=== PATIENT | female | born 1985 | race Caucasian/White ===

== ENCOUNTER 2016-09-09 12:59 | Inpatient (IN) | payer MEDICAID, OTHER ==
[2016-09-09] MEDS ORDERED: NACL 0.9% 1000 ML 1,000 ML IV ONE ×3 (13:21→15:04)
[2016-09-09 13:48] LABS: Hematocrit 28.4 % (30.3-42.9); Hemoglobin 9.1 gm/dl (10.1-14.3); Mean Corpuscular HGB Conc 32 % (30-34); Mean Corpuscular Hemoglobin 28 pg (28-32); Mean Corpuscular Volume 87 fl (79-97); Platelet Count 223 K/mm3 (140-440); Red Blood Count 3.27 M/mm3 (3.65-5.03); Red Cell Distribution Width 14.4 % (13.2-15.2); White Blood Count 9.2 K/mm3 (4.5-11.0)
--- NOTE | 2016-09-09 13:58 | Emergency Department Report ---
ED Syncope HPI - General Chief Complaint: Syncope Stated Complaint: SYNCOPE/MISCARRIAGE Time Seen by Provider: 09/09/16 13:14 Source: patient, other (friends) Exam Limitations: no limitations - History of Present Illness Initial Comments: 30-year-old female with a past medical history presents to hospital complaints of vaginal bleeding and syncopal episode prior to arrival, one in route to the hospital, and in the ER triage. Patient developed spotting yesterday was term heavy since this morning. Positive lightheadedness and dizziness reported. Patient complains of mild suprapubic cramping abdominal pain. No reports of headache, chest pain, or shortness of breath. Patient is unsure if she is because in May 2016 she took an pill. She states she had an ultrasound to confirm prior to the however, she did not follow-up after taking the medication. She has not had a menstrual cycle since until bleeding started today. 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 + syncope GI: Denies nausea, vomiting, diarrhea : Denies dysuria Musculoskeletal: Denies back pain Skin: Denies rash, lesions, erythema Neurologic: Denies headache, numbness, weakness Psychiatric: Denies suicidal ideation, hallucinations ED Past Medical Hx - Social History Smoking Status: Unknown if ever smoked ED Physical Exam - General Limitations: No Limitations - Other Other exam information: General: No limitations, patient is alert in no acute distress Head exam: Atraumatic, normocephalic Eyes exam: Normal appearance, ENT: Moist mucous membrane, normal oropharynx Neck exam: Normal inspection, full range of motion, no meningismus nontender Respiratory exam: Clear to auscultation bilateral, no wheezes, rales, crackles Cardiovascular: Normal rate and rhythm, normal heart sounds Abdomen: Soft, nondistended, mild suprapubic tenderness, with normal bowel sounds, no rebound, or guarding Extremity: Full range of motion normal inspection no deformity Back: Normal Inspection, full range of motion, no tenderness Neurologic: Alert, oriented x3, cranial nerves intact, no motor or sensory deficit Psychiatric: normal affect, normal mood Skin: Warm, dry, intact ED Course Vital Signs 09/09/16 09/09/16 09/09/16 13:04 14:03 15:10 Temperature 97.4 F L 98.6 F 98.6 F Pulse Rate 81 106 H 78 Respiratory 14 16 16 Rate Blood Pressure 147/111 Blood Pressure 85/52 66/30 [Left] O2 Sat by Pulse 100 99 99 Oximetry - Reevaluation(s) Reevaluation #1: 09/09/16 14:08 pt had a 3rd syncope episode when she was taken to the bathroom to have a bowel movement. SBP 77 upon return. - Consultations Consultation #1: 09/09/16 14:00 Case d/s Lynn Aleks with [facility] to inform him of possible critical patient might need surgical intervention secondary to vaginal bleeding, hypotension, and positive for ketones. Ultrasound pending and will be performed at bedside. She requests upon callback after receiving US results that I speak to Dr. Cervantes Consultation #2: 09/09/16 16:14 Dr Cervantes came to Ed to evaluate pt and plans to admit, obs, and tranfuse ED Medical Decision Making - Lab Data Result diagrams: 09/09/16 13:29 09/09/16 13:29 Lab Results 09/09/16 09/09/16 09/09/16 Range/Units 13:29 13:29 13:29 WBC 9.2 (4.5-11.0) K/mm3 RBC 3.27 L (3.65-5.03) M/mm3 Hgb 9.1 L (10.1-14.3) gm/dl Hct 28.4 L (30.3-42.9) % MCV 87 (79-97) fl MCH 28 (28-32) pg MCHC 32 (30-34) % RDW 14.4 (13.2-15.2) % Plt Count 223 (140-440) K/mm3 Sodium 138 (137-145) mmol/L Potassium 3.4 L (3.6-5.0) mmol/L Chloride 103.4 (98-107) mmol/L Carbon Dioxide 21 L (22-30) mmol/L Anion Gap 17 mmol/L BUN 12 (7-17) mg/dL Creatinine 0.8 (0.7-1.2) mg/dL Estimated GFR > 60 ml/min BUN/Creatinine Ratio 15.00 % Glucose 185 H (65-100) mg/dL Calcium 8.1 L (8.4-10.2) mg/dL Magnesium (1.7-2.3) mg/dL HCG, Quant 6934 H (0-4) mIU/mL Blood Type Antibody Screen 09/09/16 09/09/16 Range/Units 13:29 13:29 WBC (4.5-11.0) K/mm3 RBC (3.65-5.03) M/mm3 Hgb (10.1-14.3) gm/dl Hct (30.3-42.9) % MCV (79-97) fl MCH (28-32) pg MCHC (30-34) % RDW (13.2-15.2) % Plt Count (140-440) K/mm3 Sodium (137-145) mmol/L Potassium (3.6-5.0) mmol/L Chloride (98-107) mmol/L Carbon Dioxide (22-30) mmol/L Anion Gap mmol/L BUN (7-17) mg/dL Creatinine (0.7-1.2) mg/dL Estimated GFR ml/min BUN/Creatinine Ratio % Glucose (65-100) mg/dL Calcium (8.4-10.2) mg/dL Magnesium 1.7 (1.7-2.3) mg/dL HCG, Quant (0-4) mIU/mL Blood Type O POSITIVE Antibody Screen Negative - EKG Data -: EKG Interpreted by Me (nsr [id number]) - EKG Data When compared to previous EKG there are: previous EKG unavailable - Radiology Data Radiology results: report reviewed transvag/pelvic us: Endometrial findings suggestive of retained products of conceptus - Medical Decision Making It is likely represented a syncopal episode secondary to acute vaginal bleeding. Patient's initial hemoglobin is normal however, patient will likely blood transfusion given its continued bleeding and continued hypotensive despite normal saline. - Differential Diagnosis ectopic, miscarriage, dysfunctional uterine bleeding, anemia Critical Care Time: No Critical care attestation.: If time is entered above; I have spent that time in minutes in the direct care of this critically ill patient, excluding procedure time. ED Disposition Clinical Impression: Incomplete miscarriage, Hypotension, Vaginal bleeding Disposition: OP ADMITTED IP TO THIS HOSP Is pt being admited?: Yes Condition: Stable Time of Disposition: 16:19
[2016-09-09 14:00] LABS: Anion Gap 17 mmol/L; Blood Urea Nitrogen 12 mg/dL (7-17); Calcium 8.1 mg/dL (8.4-10.2); Carbon Dioxide 21 mmol/L (22-30); Chloride 103.4 mmol/L (98-107); Glucose 185 mg/dL (65-100); Potassium 3.4 mmol/L (3.6-5.0); Sodium 138 mmol/L (137-145)
--- NOTE | 2016-09-09 15:16 | Ultrasound Report ---
Pelvic and transvaginal sonography: History: Vaginal bleeding. Findings: Uterus measures 12.8 x 6.5 x 7 cm. Endometrial thickness 25.5 mm. Endometrium appears heterogeneous and thick with anechoic areas within the endometrium. No intrauterine gestational sac. Right ovary 2.70 and 0.8 x 1.6 cm. No mass. Left ovary 3.1 x 1.8 x 1.6 cm. No mass. No fluid in the cul-de-sac. Impression: Endometrial findings suggestive of retained products of conceptus.
[2016-09-09] MEDS ORDERED: TYLENOL PO PRN (16:16)
[2016-09-09] MEDS ORDERED: NORCO 5/325 PO PRN (16:16)
[2016-09-09] MEDS ORDERED: DULCOLAX PR PRN (16:16)
[2016-09-09] MEDS ORDERED: MOTRIN PO PRN (16:16)
[2016-09-09] MEDS ORDERED: ZOFRAN IV PRN (16:16)
[2016-09-09] MEDS ORDERED: MORPHINE IV PRN (16:16)
[2016-09-09] MEDS ORDERED: MILK OF MAGNESIA PO PRN (16:16)
[2016-09-09] MEDS ORDERED: METHERGINE IM ONE (16:19)
--- NOTE | 2016-09-09 16:20 | Admit Criteria Form ---
Admission Criteria Documentation: OBSTETRIC AND GYNECOLOGIC DISEASE GRG Clinical Indications for Admission to Inpatient Care (Place 'X' for any and all applicable criteria): Hospital admission is needed for appropriate care of the patient because of ANY ONE of the following (1)(2)(3): [X ]I. Hemodynamic instability, as indicated by ALL of the following (1)(2)(3) (4)(5): [X ]a) Vital signs or other findings not as expected for chronic patient condition or baseline [ X]b) Instability indicated by ANY ONE of the following: [ X]i) Hypotension [ ]ii) Symptomatic tachycardia unresponsive to treatment (eg, analgesia, fluids, sedation as indicated) [ ]iii) Inadequate perfusion indicated by ANY ONE of the following: [ ]A. Lactic acidosis (greater than 2 mmol/ L) [ ]B. New abnormal capillary refill ( greater than 3 seconds) [ ]C. Reduced urine output [ ]D. New altered mental status [ ]iv) Orthostatic vital sign changes unresponsive to treatment (eg, fluids) [ ]v) Multiple IV fluid boluses required to maintain adequate blood pressure or perfusion [ ]vi) IV inotropic or vasopressor medication required to maintain adequate blood pressure or perfusion [ ]II. Obstetric infection requiring hospitalization indicated by ANY ONE of the following(13)(14): [ ]a) Chorioamnionitis [ ]b) Endometritis (except mild endometritis) [ ]c) Pelvic abscess [ ]d) Peritonitis [ ]e) Septic pelvic thrombophlebitis [ ]III. Amniotic fluid or pulmonary embolism(4)(5)(6) [ ]IV. Suspected peritonitis or ectopic requiring monitoring beyond scope of 24 hours or observation care(7)(8) [ ]V. compromise requiring hospitalization indicated by ALL of the following(9)(10): [ ]a) compromise indicated by ANY ONE of the following(11): [ ]i) Abnormal heart rate monitoring [ ]ii) Abnormal contraction stress test [ ]iii) Abnormal biophysical profile [ ]iv) Abnormal Doppler flow in vessels (ie, Doppler velocimetry) (12) [ ]b) Persistence of compromise indicators during evaluation and observation monitoring [ ]. Ovarian hyperstimulation syndrome requiring hospitalization[A] indicated by ALL of the following(15): [ ]a) Recent ovarian stimulation with gonadotropins, or evidence on ultrasound of spontaneous emergence of large number of ovarian follicles [ ]b) Evidence of severe ovarian hyperstimulation syndrome indicated by ANY ONE of the following: [ ]i) Abdominal pain unresponsive to oral therapy [ ]ii) Acute respiratory distress syndrome [ ]iii) Electrolyte imbalance ( eg, hyponatremia, hyperkalemia) [ ]iv) Elevated liver enzymes [ ]v) Evidence of thromboembolism [ ]vi) Hemoconcentration (hematocrit greater than 45 % (0.45)) [ ]vii) Inability to maintain oral intake adequate to prevent hemoconcentration [ ]viii) Marked hypotension from baseline (eg, SBP 20 mmHg below patients usual pressure) [ ]ix) Oliguria or anuria [ ]x) Ovarian torsion [ ]xi) Pleural or pericardial effusion on x-ray or echocardiogram [ ]xii) Rapid increase in serum creatinine to greater than 1.2 mg/dL (106 micromoles/L) or creatinine clearance less than 50 mL/min/1.73m2 (0.84 mL/ sec/1.73m2) [ ]xiii) Ruptured ovarian cyst with hemorrhage [ ]xiv) Severe abdominal pain or peritoneal signs [ ]xv) Tense ascites that cannot be managed with paracentesis in outpatient setting [ ]VII.Pelvic infection requiring hospitalization indicated by ANY ONE of the following (16): [ ]a) Outpatient treatment has failed or is not appropriate (eg, inpatient monitoring required) [ ]b) Pelvic abscess [ ]c) Surgical emergency cannot be excluded (eg, rigid abdomen) [ ]d) Vomiting precluding outpatient and observation care management VIII. loss complications requiring inpatient medical treatment indicated by ANY ONE of the following (4)(7)(9): [ ]a) Fever [ ]b) Peritonitis [ ]c) Sepsis [ ]d) Severe abdominal pain [ ]IX. or patient requiring monitoring for severe heart failure, pulmonary disease, or other comorbid condition (eg, peripartum cardiomyopathy) (4)(17) [ ]X. patient with rupture of membranes requiring hospitalization indicated by ANY ONE of the following: [ ]a) Chorioamnionitis, cloudy amniotic fluid, or other evidence of infection [ ]b) compromise or other need for monitoring (11) [ ]c) Gestation longer than 23 weeks and ANY ONE of the following: [ ]i) Abnormal (noncephalic) presentation [ ]ii) Inadequate home environment (eg, home too far from hospital, unable to rapidly return to hospital) [ ]d) Temperature greater than 100.4 degrees F (38 degrees C)( oral) [ ]e) Threatened labor requiring monitoring beyond scope (eg, over 24 hours) of observation Care [ ] XI. complications, including severe lacerations, infections, or retained placenta (19) [ ] XII.Uterine bleeding with high-risk features indicated by ANY ONE of the following (4): [ ]a) Active major hemorrhage (eg, hemorrhage) [ ]b) Coagulopathy with active bleeding [ ]c) Gestational trophoblastic disease (eg, molar ) (20 ) [ ]d) (longer than 23 weeks) and ANY ONE of the following: [ ]i) Pain [ ]ii) Placental abruption, known or suspected [ ]iii) Placenta accrete, known or suspected(21) [ ]iv) Placenta previa, known or suspected [ ]v) Vasa previa [ ]e) Severe anemia [ ]XIII. Obstetric or Gynecologic Disease, condition or symptom for which ANY ONE of the following: [ ]a) Emergency and observation care have failed or are not considered appropriate ( Also use General Criteria: Observation Care Criteria as appropriate) [ ]b) Presence of a General Admission Criteria or Pediatric General Admission Criteria The original [facility] content created by [facility] has been revised. The portions of the content which have been revised are identified through the use of italic text or in bold, and [facility] has neither reviewed nor approved the modified material.All other unmodified content is copyright [facility]. Please see references footnoted in the original [facility] edition 2016 Admission Criteria Met: Yes
--- NOTE | 2016-09-09 16:25 | History and Physical Report ---
History of Present Illness Date of examination: 09/09/16 Date of admission: 09/09/16 Chief complaint: heavy vaginal bleeding/ fainting. History of present illness: Pt is a presents c/o having vaginal bleeding with passage of large clots that started on today. She is from [place] and was in town for hair show and had been spotting for the last week but only with wiping. Pt had a normal IUP in May and states she had an elective medical by taking oral meds but did not f/u for complete resolution. She has not had a period since taking the medication but states she did a test last week when she had some spotting that was positive. Between the medical and now she did not have a period. Pt states that while at hotel this am she was using several towels for the bleeding and that she was passing large clots. She did not have pain until being examined in the ER by myself. She states that she fainted in the hotel and remembers hitting her head but she is not sure where. When she woke up she was urged by friends to come to ER but did not come. She states she started feeling more dizziness and decided to come to ER.While in the ER she has remained hypotensive with near syncopy with ambulation to the bathroom. She denies any chest pain or palpitations at this time. EKG was normal. Pt heavy bleeding was proceeded by a gush of blood. Past History Past Medical History: no pertinent history Past Surgical History: other (leg sx as a child) [employer]DER History: denies: abnormal PAP smear, chlamydia, gonorrhea, hepatitis B, hepatitis C, HIV, syphilis, trichomonas Family/Genetic History: diabetes, hypertension Social history: no significant social history Medications and Allergies Allergies Allergy/AdvReac Type Severity Reaction Status Date / Time No Known Allergies Allergy Unverified 09/09/16 13:31 Active Meds: Active Medications Acetaminophen (Tylenol) 650 mg PO Q4H PRN PRN Reason: Pain MILD(1-3)/Fever >100.5/BRAVO Acetaminophen/Hydrocodone Bitart ([place] 5/325) 2 each PO Q6H PRN PRN Reason: Pain, Moderate (4-6) Bisacodyl (Dulcolax) 10 mg AK QDAY PRN PRN Reason: Constipation unrelieved by MOM Ibuprofen (Motrin) 600 mg PO Q6H PRN PRN Reason: Pain, Mild (1-3) Magnesium Hydroxide (Milk Of Magnesia) 30 ml PO Q4H PRN PRN Reason: Constipation Methylergonovine Maleate (Methergine) 0.2 mg PO Q8HR JIMBO Methylergonovine Maleate (Methergine) 0.2 mg IM ONCE ONE Stop: 09/09/16 16:20 Morphine Sulfate (Morphine) 2 mg IV Q4H PRN PRN Reason: Pain, Moderate (4-6) Ondansetron HCl (Zofran) 4 mg IV Q8H PRN PRN Reason: N/V unrelieved by Reglan Review of Systems All systems: negative - Vital Signs Vital signs: Vital Signs Temp Pulse Resp BP Pulse Ox 97.4 F L 81 14 147/111 100 09/09/16 13:04 09/09/16 13:04 09/09/16 13:04 09/09/16 13:04 09/09/16 13:04 Temp Pulse Resp BP Pulse Ox 98.6 F 78 16 66/30 99 09/09/16 15:10 09/09/16 15:10 09/09/16 15:10 09/09/16 15:10 09/09/16 15:10 - Physical Exam Breasts: Positive: deferred Cardiovascular: Normal S1, Normal S2 Lungs: Positive: Normal air movement Abdomen: Positive: normal appearance, soft. Negative: distention, tenderness, guarding Genitourinary (Female): Positive: normal external genitalia, normal perenium Vulva: both: normal Vagina: Positive: normal moisture, other (large clots present and evacuated from the uterus) Cervix: Positive: other (approximately 1cm dilated. clots and pocs were removed from the Os with there being a significant decrease in the amount of bleeding. No clotting seen after the pocs were removed.) Extremities: Positive: normal. Negative: tenderness, edema Deep Tendon Reflex Grade: Normal +2 Results Result Diagrams: 09/09/16 13:29 09/09/16 13:29 Abnormal lab results 09/09/16 09/09/16 09/09/16 Range/Units 13:29 13:29 13:29 RBC 3.27 L (3.65-5.03) M/mm3 Hgb 9.1 L (10.1-14.3) gm/dl Hct 28.4 L (30.3-42.9) % Potassium 3.4 L (3.6-5.0) mmol/L Carbon Dioxide 21 L (22-30) mmol/L Glucose 185 H (65-100) mg/dL Calcium 8.1 L (8.4-10.2) mg/dL HCG, Quant 6934 H (0-4) mIU/mL All other labs normal. Assessment and Plan - Patient Problems (1) Spontaneous Current Visit: Yes Status: Acute Plan to address problem: -incomplete but bleeding decreasing with removal of pocs from the os as well as clots -will closely monitor and give blood at this time -methergine IV x 1 now and po q 8hrs -will proceed with D&C if pt does not respond to above conservative measures. (2) Syncope Current Visit: Yes Status: Acute Qualifiers: Syncope type: S Encounter type: E Plan to address problem: -due to amemia -give blood at this time -EKG negative -closely monitor in the unit (3) Hypotension Current Visit: Yes Status: Acute Qualifiers: Hypotension type: H Trimester: T Plan to address problem: -due to depleted volume -will give blood at this time (4) Anemia Current Visit: Yes Status: Acute Qualifiers: Anemia type: A Vitamin B12 deficiency anemia type: V Folate deficiency anemia type: F Bone marrow failure anemia type: B Hemolytic anemia type: H Other causes of anemia: acute posthemorrhagic Qualified Code(s): D62 - Acute posthemorrhagic anemia Plan to address problem: -transfuse at this time -monitor closely -if no response to conservative measures for the , will proceed with D&C
[2016-09-09] MEDS ORDERED: NACL 0.9% 500 ML 500 ML IV NR (16:39)
[2016-09-09 17:15] LABS: Hemoglobin 6.6 gm/dl (10.1-14.3); Mean Corpuscular HGB Conc 33 % (30-34); Mean Corpuscular Hemoglobin 29 pg (28-32); Mean Corpuscular Volume 88 fl (79-97); Platelet Count 156 K/mm3 (140-440); Red Blood Count 2.28 M/mm3 (3.65-5.03); Red Cell Distribution Width 14.7 % (13.2-15.2); White Blood Count 9.2 K/mm3 (4.5-11.0)
[2016-09-09 17:34] LABS: Alanine Aminotransferase 7 units/L (7-56); Albumin 2.4 g/dL (3.9-5); Albumin/Globulin Ratio 1.6 %; Alkaline Phosphatase 45 units/L (35-129); Bilirubin,Total 0.2 mg/dL (0.1-1.2); Total Protein 3.9 g/dL (6.3-8.2)
--- NOTE | 2016-09-09 17:35 | Event Note ---
Date: 09/09/16 Pt advised of need for blood due to severe anemia and symptoms. She remains alert and has not had any more syncopal episodes. She states she has not had a gush of blood or passage of clots since removal of pocs and clots from the cervical os during my exam. BP still 93/50 at this time. Nursing staff at bedside consenting pt for blood. Pt advised that the blood will help to increase her volume and help with the symptoms she is having. She is worried about getting back home to [place] and her support persons need to return to [place] today. I advised that she needs to stay as she is clinically unstable due to the anemia an needing the transfusion. Pt agrees to plan of care at this time and consents were signed. Pt was examined and minimal blood note on towel( being used as padding at this time) and no active vaginal bleeding which has significantly improved since my last exam. Will start the methergine IM and po and again closely monitor.
[2016-09-09 17:38] LABS: Bilirubin,Direct < 0.2 mg/dL (0-0.2)
[2016-09-09 17:42] LABS: INR 1.45 (0.87-1.13)
[2016-09-09 18:31] LABS: Blastocytes % (Manual) 0 %; Eosinophils % (Manual) 0 % (0.0-4.3)
[2016-09-09 18:32] LABS: Giant Platelets 1+; Hypochromasia 1+; Ovalocytes Few
[2016-09-09 18:33] LABS: Diff Status Complete; Platelet Estimate Consistent w Auto
--- NOTE | 2016-09-10 00:05 | Event Note ---
Date: 09/10/16 Called an inquired about UOP not being recorded, nursing staff states that francis cath not placed although it was ordered. Nurse at beside asking pt if she voided and how much. Pt can be heard stating "alot." I advised that if pt does not want the cath placed, which is not clear why it wasn't placed, that she needs to have a hat placed in the toilet so that strict I/Os can be recorded as ordered. I expressed this to nursing staff and stressed provider to be called if less than 30cc/hr again as ordered. Nursing staff expressed understanding and questions were addressed and answered.
[2016-09-10] MEDS: METHERGINE PO SCH ×3 (01:12→13:14)
[2016-09-10] MEDS: LACTATED RINGERS 1,000 ML IV SCH ×2 (01:16→09:56)
[2016-09-10] MEDS: ceFAZolin 2 GM in NACL 0.9% 100 ML IV SCH ×2 (01:17→01:19)
[2016-09-10 05:38] LABS: Basophils % (Auto) 0.3 % (0.0-1.8); Eosinophils % (Auto) 0.6 % (0.0-4.3); Hematocrit 24.4 % (30.3-42.9); Mean Corpuscular HGB Conc 33 % (30-34); Mean Corpuscular Hemoglobin 29 pg (28-32); Mean Corpuscular Volume 88 fl (79-97); Platelet Count 145 K/mm3 (140-440); Red Blood Count 2.78 M/mm3 (3.65-5.03); Red Cell Distribution Width 14.5 % (13.2-15.2); White Blood Count 11.7 K/mm3 (4.5-11.0)
[2016-09-10] MEDS ORDERED: ceFAZolin 2 GM in NACL 0.9% 100 ML IV SCH (10:00)
[2016-09-10] MEDS ORDERED: MILK OF MAGNESIA PO PRN (11:15)
[2016-09-10] MEDS ORDERED: D5/0.45NS 1,000 ML IV SCH (11:15)
[2016-09-10] MEDS ORDERED: ZOFRAN IV PRN (11:15)
[2016-09-10] MEDS ORDERED: TYLENOL PO PRN (11:15)
[2016-09-10] MEDS ORDERED: DULCOLAX PR PRN (11:15)
--- NOTE | 2016-09-10 11:43 | Event Note ---
Date: 09/10/16 No official consult placed but patient was discussed multidisciplinary rounds. Visiting from [place] and developed acute vaginal bleeding. Diagnosed with incomplete secondary to medical therapy. OB asked to monitor in ICU. Given 2 units of PRBC's on yesterday. H/H this am 03/20. OB continues to follow and patient is on methergine. Here for assitance if [employer] requests. Suggest repeating H/H this afternoon. OB to determine duration of treatment and any repeat imaging studies.
[2016-09-10] MEDS ORDERED: COLACE PO SCH (13:00)
[2016-09-10 13:44] LABS: Hematocrit 25.1 % (30.3-42.9); Hemoglobin 8.2 gm/dl (10.1-14.3)
[2016-09-10 15:43] LABS: Bilirubin,Urine NEG (Negative); Blood,Urine LG (Negative); Ketones,Urine 20 mg/dL (Negative); Leukocyte Esterase,Urine MOD (Negative); Mucus,Urine 3+ /HPF; Nitrite,Urine NEG (Negative); Urobilinogen,Urine < 2.0 mg/dL (<2.0)
[2016-09-10 15:49] LABS: RBC,Urine > 182.0 /HPF (0.0-6.0)
--- NOTE | 2016-09-10 16:31 | Ultrasound Report ---
Pelvic and transvaginal sonography: History: Verify complete . Findings: Uterus measures 12 x 6.7 x 7.7 cm. Endometrial thickness 23 mm. Thick endometrium with hypoechoic areas. Right ovary 3.3 x 1.9 x 2.7 cm. Solid mass in the right ovary measures 2.3 cm. Left ovary 2.7 x 1.2 x 2.4 cm. No mass. Impression: Thickened endometrium with hypoechoic areas probably suggests retained products of conceptus and/ or blood clots. Solid mass at the right ovary probably resolving corpus luteum.
--- NOTE | 2016-09-10 17:25 | Short Stay Summary ---
Short Stay Documentation Date of service: 09/10/16 - History H&P: dictated Social history: no significant social history - Allergies and Medications Current Medications: Allergies No Known Allergies Allergy (Unverified 09/09/16 13:31) Home Medications Medication Instructions Recorded Confirmed Last Taken Type Acetaminophen/Codeine [Tylenol #3] 1 tab PO Q4HR PRN #10 tablet 09/10/16 Unknown Rx Ferrous Sulfate [Feosol 325 MG tab] 325 mg PO BID #60 tablet 09/10/16 Unknown Rx Ibuprofen [Motrin 800 MG tab] 800 mg PO Q6H PRN #30 tablet 09/10/16 Unknown Rx Methylergonovine [Methergine] 0.2 mg PO Q8HR #6 tablet 09/10/16 Unknown Rx Active Medications Acetaminophen (Tylenol) 650 mg PO Q4H PRN PRN Reason: Pain MILD(1-3)/Fever >100.5/BRAVO Acetaminophen/Hydrocodone Bitart ([place] 5/325) 2 each PO Q6H PRN PRN Reason: Pain, Moderate (4-6) Bisacodyl (Dulcolax) 10 mg [place] QDAY PRN PRN Reason: Constipation unrelieved by MOM Docusate Sodium (Colace) 100 mg PO BID [facility] Last Admin: 09/10/16 13:14 Dose: 100 mg Cefazolin Sodium 2 gm/ Sodium (Chloride) 100 mls @ 200 mls/hr IV Q8H [facility] Last Admin: 09/10/16 09:51 Dose: 200 mls/hr Dextrose/Sodium Chloride (D5/0.45ns) 1,000 mls @ 100 mls/hr IV DIRECT [facility] Last Admin: 09/10/16 13:14 Dose: 100 mls/hr Ibuprofen (Motrin) 600 mg PO Q6H PRN PRN Reason: Pain, Mild (1-3) Magnesium Hydroxide (Milk Of Magnesia) 30 ml PO Q4H PRN PRN Reason: Constipation Methylergonovine Maleate (Methergine) 0.2 mg PO Q8HR [facility] Last Admin: 09/10/16 13:14 Dose: 0.2 mg Ondansetron HCl (Zofran) 4 mg IV Q8H PRN PRN Reason: N/V unrelieved by Reglan - Physical exam Breasts: deferred Heart: Regular rate Gastrointestinal: normal, no tenderness, no distended, no guarding, obese, other (Soft) Female Genitourinary: other (externl normal no bleeding) Extremities: no ischemia, No edema, Full ROM - Hospital course Hospital course: Please see dictated H&P. Patient had clots evacuated from the vagina ER and had slowing of bleeding. Patient was admitted to the ICU due to hypertension which resolved after hydration and 2 units blood transfusion packed red blood cells. This morning the patient had only a spotting reported. Patient hematocrit increased to 25% and she had no orthostatic symptoms. Repeat ultrasound did show some thickening of endometrium and possible blood clots in utero. These findings were discussed with the patient. Patient was very insistent on going home she wanted to go back home for her home physician. Discussed the possibility of having another heavy bleed with the findings noted above. Patient says she understands but desires discharge from the hospital. At time of discharge patient stable no evidence that the operative therapy must be done. Discussed with patient medical treatments for spontaneous abortions and she desires to continue with the Methergine. Patient didn't want she could have have heavy bleeding and instructed to seek emergency care if the bleeding is severe. Patient is also getting analgesia cramping associated with the Methergine. All patient's questions were answered. - Disposition Condition at discharge: Good Disposition: DISCHARGED TO HOME OR SELFCARE - Discharge Diagnoses (1) Anemia Status: Acute Qualifiers: Anemia type: A Iron deficiency anemia type: I Vitamin B12 deficiency anemia type: V Folate deficiency anemia type: F Bone marrow failure anemia type: B Hemolytic anemia type: H Other causes of anemia: acute posthemorrhagic Qualified Code(s): D62 - Acute posthemorrhagic anemia (2) Spontaneous Status: Acute (3) Vaginal bleeding Status: Acute Short Stay Discharge Plan Follow up with: PRIMARY CARE, [Primary Care Provider] - 7 Days Prescriptions: Acetaminophen/Codeine [Tylenol #3] 1 tab PO Q4HR PRN #10 tablet PRN Reason: Pain Ferrous Sulfate [Feosol 325 MG tab] 325 mg PO BID #60 tablet Methylergonovine [Methergine] 0.2 mg PO Q8HR #6 tablet Ibuprofen [Motrin 800 MG tab] 800 mg PO Q6H PRN #30 tablet PRN Reason: Pain
[2016-09-10 18:27] VITALS: BP 109/69
== END 2016-09-10 18:56 | disposition home or self-care (01) | DRG 779 ==
LOC: ED 12:59 → CC1 16:14
PROVIDERS: ADMIT Obstetrics & Gynecology; ATTEND Obstetrics & Gynecology
PROC: 30233N1 Transfusion of Nonautologous Red Blood Cells into Peripheral Vein, Percutaneous Approach (ICD-10-PCS; principal; 2016-09-09)
DX: O03.6 Delayed or excessive hemorrhage following complete or unspecified spontaneous abortion (principal); D62 Acute posthemorrhagic anemia; I95.9 Hypotension, unspecified; Z83.3 Family history of diabetes mellitus; Z82.49 Family history of ischemic heart disease and other diseases of the circulatory system; Z86.19 Personal history of other infectious and parasitic diseases
CPT/HCPCS: 36415; 76801; 76817; 80048; 80074; 81001; 82962; 83735; 84702; 84703; 85007; 85014; 85018; 85025; 85027; 85610; 85730; 86850; 86900; 86901; 86920; 88305; 93005; 93010; 96360; 96361; 96372; J0690; J2210; J7030; J7040; J7120; P9016